=== PATIENT | female | born 1995 | race Caucasian/White ===

== ENCOUNTER → 2016-06-30 | Outpatient (CLI) | payer BC ==
[~2016-06-30] MED LIST: BIOTCAP2 PO; EPP3/2 IM; FLUD0.1T10 PO; JNL12021 PO; ONDA4TAB10 UT; POLY150C4 PO; SENN-61 PO
[2016-06-30 10:53] LABS: BASO % 0.8 %; BASO ABS # 0.05 K/uL (0-0.2); COMPLETE YES; EOS % 3.1 %; HEMATOCRIT 37.2 % (37-47); LYMPH % 31.1 %; MEAN CORPUSCULAR HEMOGLOBIN 27.8 pg (25-34); MEAN CORPUSCULAR HGB CONC 33.1 g/dl (32-36); MEAN PLATELET VOLUME 10.6 fL (7.4-10.4); MONO % 7.2 %; NEUT % 57.8 %; PLATELET COUNT 258 K/uL (130-400); RED BLOOD COUNT 4.43 M/uL (4.2-5.4); RETHE 31.2 PG (28.2-36.6); WHITE BLOOD COUNT 6.11 K/uL (4.8-10.8)
[2016-06-30 11:37] LABS: FERRITIN 32.4 ng/ml (8.0-388.0); TOTAL IRON BINDING CAPACITY 502 mcg/dl (250-450)
== END | disposition home or self-care (01) ==
LOC: C.LAB1850 10:00
PROVIDERS: ATTEND Hospitalist
DX: D50.9 Iron deficiency anemia, unspecified (principal)

== ENCOUNTER → 2016-11-13 | Outpatient (CLI) | payer BC ==
[2016-11-13 12:14] LABS: BASO ABS # 0.06 K/uL (0-0.2); EOS % 7.7 %; HEMATOCRIT 36.8 % (37-47); IG% 0.2 %; IMMATURE RETIC FRACTION 3.8 % (3.0-15.9); LYMPH % 30.9 %; LYMPH ABS # 1.77 K/uL (1.2-3.4); MEAN CELL VOLUME 84.4 fL (80-100); MEAN CORPUSCULAR HEMOGLOBIN 26.8 pg (25-34); MEAN CORPUSCULAR HGB CONC 31.8 g/dl (32-36); MEAN PLATELET VOLUME 10.8 fL (7.4-10.4); MONO % 6.6 %; NEUT % 53.6 %; PLATELET COUNT 257 K/uL (130-400); RED BLOOD COUNT 4.36 M/uL (4.2-5.4); RETHE 30.5 PG (28.2-36.6); WHITE BLOOD COUNT 5.72 K/uL (4.8-10.8)
[2016-11-13 12:38] LABS: ESTIMATED AVERAGE GLUCOSE 114 mg/dl; HA1C FLAG Normal (Normal)
[2016-11-13 12:40] LABS: C-REACTIVE PROTEIN < 0.29 mg/dl (0-0.29); FERRITIN 36.4 ng/ml (8.0-388.0); THYROID STIMULATING HORMONE 0.564 uIu/ml (0.300-4.500); TOTAL IRON BINDING CAPACITY 489 mcg/dl (250-450)
[2016-11-13 13:08] LABS: ECHINOCYTES 1+
[2016-11-13 14:11] LABS: COMPLETE YES
== END | disposition home or self-care (01) ==
LOC: C.LAB1850 10:33
PROVIDERS: ATTEND Physician Assistant
DX: D50.9 Iron deficiency anemia, unspecified (principal); R94.6 Abnormal results of thyroid function studies; R73.09 Other abnormal glucose

== ENCOUNTER → 2017-01-16 | Outpatient (CLI) | payer BC | END | disposition home or self-care (01) | LOC: C.PAPS 16:47 | PROVIDERS: ATTEND Obstetrics & Gynecology | DX: Z01.419 Encounter for gynecological examination (general) (routine) without abnormal findings (principal) ==

== ENCOUNTER 2017-05-09 12:37 | Emergency (ER) | payer BC, OTHER ==
[~2017-05-09] VITALS: Ht 167.6 cm; Wt 60.5 kg
[2017-05-09 12:46] VITALS: TEMP 38.3; Ht 167.6 cm; Wt 60.5 kg
[2017-05-09] MEDS ORDERED: SODIUM CHLORIDE 0.9% 1000ML 1,000 ML IV STA (13:07)
[2017-05-09] MEDS ORDERED: ACETAMINOPHEN 500 MG TAB PO STA (13:07)
[2017-05-09] MEDS ORDERED: CEFTRIAXONE SOD INJ 1 GM ADDVIAL IV STA (13:09)
--- NOTE | 2017-05-09 13:09 | EMERGENCY ROOM VISIT NOTE ---
History Report prepared by Dilcia: Dyana Lyles Under the Supervision of: Dr. Sarath Ruiz M.D. First contact with patient: 12:48 Chief Complaint: HEMATURIA Stated Complaint: HEMATURIA - REF BY DR WARD Nursing Triage Summary: pt reports started this AM with hematuria and dysuria, urinary freq. referred by PCP History of Present Illness The patient is a 21 year old female who presents to the Emergency Room with complaints of persistent hematuria since 4 am, about 7 hours MANAGER ANALYSIS. She notes abdominal pain and fever. She currently rates her pain a 4/10 in severity. She notes a 10 year history of intermittent hematuria, with no underlying cause. She states that she spoke with her PCP and was advised to come to the ED for evaluation. Her LNMP was last week. She denies retaining a tampon and . She denies any back pain. She has an iron insufficiency. She has a history of anemia and proteinuria. Source of History: patient Onset: 7 hours MANAGER ANALYSIS Position: other (global ) Symptom Intensity: 4/10 Quality: other (hematuria ) Timing: other (persistent) Associated Symptoms: + fevers, + abdominal pain Review of Systems See HPI for pertinent positives & negatives. A total of 10 systems reviewed and were otherwise negative. Past Medical & Surgical Medical Problems: (1) Anemia (2) Proteinuria Family History Cancer Diabetes mellitus Gallbladder disease Heart disease Hypertension Kidney disease Social History Smoking Status: Never Smoker Smokeless Tobacco Use: No Alcohol Use: none Drug Use: none Marital Status: single Housing Status: lives with family Occupation Status: employed Current/Historical Medications Scheduled Biotin (Biotin 5000), 5 MG PO HS Ethinyl Estradiol/Norethindr (Junel 05/16), 1 TAB PO HS Fludrocortisone Acetate (Florinef), 0.1 MG PO DAILY Polysaccharide Iron Complex (Ferrex 150), 150 MG PO BID Sulfa/Trimethoprim (Bactrim Ds 800MG/160MG), 1 TAB PO BID Allergies Coded Allergies: Benzyl Alcohol (Verified Allergy, Severe, ANAPHYLAXIS, 05/09/17) Iron (Verified Allergy, Severe, ANAPHYLAXIS, 05/09/17) Sucrose (Verified Allergy, Severe, ANAPHYLAXIS, 05/09/17) Physical Exam Vital Signs Date Time Temp Pulse Resp B/P (MAP) Pulse Ox O2 Delivery O2 Flow Rate FiO2 05/09/17 14:49 83 16 129/79 100 Room Air 05/09/17 12:46 38.3 104 20 140/85 99 Room Air Physical Exam GENERAL: Patient is a healthy-appearing well-nourished [] HEAD: Normocephalic atraumatic EYES: Ocular movements intact pupils equal and react to light OROPHARYNX mucous membranes are moist no exudates present no erythema or edema present NECK: Supple no nuchal rigidity CHEST: Good equal expansion LUNGS: Clear and equal to auscultation CARDIAC: Normal S1 and S2 ABDOMEN: Soft nontender no guarding BACK: No CVA tenderness EXTREMITIES: No pain upon palpation normal muscle strength in all groups no clubbing cyanosis or edema NEURO: Patient is following commands and answering questions appropriately. Alert and oriented x3 Cranial Nerves 2-12 grossly intact Medical Decision & Procedures ER Provider Diagnostic Interpretation: Radiology results as stated below per my review and radiologist interpretation: KUB CLINICAL HISTORY: Pt c/o hematuria pain pain COMPARISON STUDY: 10/25/2013 FINDINGS: Nonobstructive bowel pattern. Several calcifications overlying the right kidney. Surgical clips in the right upper quadrant presumably from prior cholecystectomy. IMPRESSION: 4 mm calcification mid right kidney. Nonobstructive bowel pattern. No acute process. The above report was generated using voice recognition software. It may contain grammatical, syntax or spelling errors. Electronically signed by: Lan Gonzalez M.D. 05/09/2017 1:45 PM Dictated Date/Time: 05/09/2017 1:44 PM (RENAL)RETROPERITON COMP HISTORY: Pain Pt c/o suprapubic pain COMPARISON: 11/28/2014. FINDINGS: Mild prominence of the renal pelves bilaterally. This is considered a chronic finding in this patient. No evidence for hydronephrosis. Maximum dimension of the right kidney is 12.1 cm. Maximum dimension left kidney is 11.2 cm. Bladder: No bladder wall thickening. The bilateral ureteral jets were identified. IMPRESSION: 1. Slight chronic prominence of the renal pelves bilaterally. 2. No acute process. 3. No evidence for hydronephrosis. The above report was generated using voice recognition software. It may contain grammatical, syntax or spelling errors. Electronically signed by: Lan Gonzalez M.D. 05/09/2017 2:20 PM Dictated Date/Time: 05/09/2017 2:18 PM Laboratory Results 05/09/17 13:18 Red Blood Count 4.29, Mean Corpuscular Volume 83.0, Mean Corpuscular Hemoglobin 27.5, Mean Corpuscular Hemoglobin Concent 33.1, Mean Platelet Volume 10.6, Neutrophils (%) (Auto) 69.0, Lymphocytes (%) (Auto) 22.4, Monocytes (%) (Auto) 6.4, Eosinophils (%) (Auto) 1.6, Basophils (%) (Auto) 0.5, Neutrophils # (Auto) 6.37, Lymphocytes # (Auto) 2.07, Monocytes # (Auto) 0.59, Eosinophils # (Auto) 0.15, Basophils # (Auto) 0.05 05/09/17 13:18 Test 05/09/17 13:00 05/09/17 13:18 Urine Color YELLOW Urine Appearance CLEAR (CLEAR) Urine pH 6.0 (4.5-7.5) Urine Specific [place] 1.013 (1.000-1.030) Urine Protein NEG (NEG) Urine Glucose (UA) NEG (NEG) Urine Ketones TRACE (NEG) Urine Occult Blood 3+ (NEG) Urine Nitrite NEG (NEG) Urine Bilirubin NEG (NEG) Urine Urobilinogen NEG (NEG) Urine Leukocyte Esterase MODERATE (NEG) Urine WBC (Auto) >30 /hpf (0-5) Urine RBC (Auto) 5-10 /hpf (0-4) Urine Hyaline Casts (Auto) 1-5 /lpf (0-5) Urine Epithelial Cells (Auto) 20-30 /lpf (0-5) Urine Bacteria (Auto) NEG (NEG) White Blood Count 9.24 K/uL (4.8-10.8) Red Blood Count 4.29 M/uL (4.2-5.4) Hemoglobin 11.8 g/dL (12.0-16.0) Hematocrit 35.6 % (37-47) Mean Corpuscular Volume 83.0 fL (80-100) Mean Corpuscular Hemoglobin 27.5 pg (25-34) Mean Corpuscular Hemoglobin Concent 33.1 g/dl (32-36) Platelet Count 234 K/uL (130-400) Mean Platelet Volume 10.6 fL (7.4-10.4) Neutrophils (%) (Auto) 69.0 % Lymphocytes (%) (Auto) 22.4 % Monocytes (%) (Auto) 6.4 % Eosinophils (%) (Auto) 1.6 % Basophils (%) (Auto) 0.5 % Neutrophils # (Auto) 6.37 K/uL (1.4-6.5) Lymphocytes # (Auto) 2.07 K/uL (1.2-3.4) Monocytes # (Auto) 0.59 K/uL (0.11-0.59) Eosinophils # (Auto) 0.15 K/uL (0-0.5) Basophils # (Auto) 0.05 K/uL (0-0.2) RDW Standard Deviation 41.0 fL (36.4-46.3) RDW Coefficient of Variation 13.6 % (11.5-14.5) Immature Granulocyte % (Auto) 0.1 % Immature Granulocyte # (Auto) 0.01 K/uL (0.00-0.02) Anion Gap 6.0 mmol/L (3-11) Est Creatinine Clear Calc Drug Dose 112.5 ml/min Estimated GFR () 134.2 Estimated GFR (Non- 115.8 BUN/Creatinine Ratio 13.0 (10-20) Calcium Level 8.7 mg/dl (8.5-10.1) Total Bilirubin 0.5 mg/dl (0.2-1) Direct Bilirubin 0.2 mg/dl (0-0.2) Aspartate Amino Transf (AST/SGOT) 11 U/L (15-37) Alanine Aminotransferase (ALT/SGPT) 19 U/L (12-78) Alkaline Phosphatase 49 U/L (45-117) Total Protein 7.5 gm/dl (6.4-8.2) Albumin 3.7 gm/dl (3.4-5.0) Lipase 110 U/L (73-393) Labs reviewed by ED physician. Medications Administered Medications (Trade) Dose Ordered Sig/Wilma Route Start Time Stop Time Status Last Admin Dose Admin Sodium Chloride 1,000 ml @ 999 mls/hr Q1H1M STAT IV 05/09/17 13:07 05/09/17 14:07 DC 05/09/17 13:31 999 MLS/HR Acetaminophen (Tylenol Tab) 1,000 mg NOW STAT PO 05/09/17 13:07 05/09/17 13:10 DC 05/09/17 13:30 1,000 MG Ceftriaxone Sodium (Rocephin Inj) 1 gm NOW STAT IV 05/09/17 13:09 05/09/17 13:10 DC 05/09/17 13:30 1 GM Trimethoprim/ Sulfamethoxazole (Septra Ds 800/ 160MG Tab) 1 tab NOW STAT PO 05/09/17 14:41 05/09/17 14:42 DC 05/09/17 14:48 1 TAB ED Course 1300: Past medical records reviewed. The patient was evaluated in room A2. A complete history and physical examination was performed. 1307: Ordered Tylenol 1,000 mg PO and Sodium Chloride 1,000 ml @ 999 mls/hr 1309: Ordered Rocephin 1 gm IV 1435: I reassessed the patient at this time. She is feeling better and resting comfortably. I discussed the results and treatment plan with the patient. I answered all pertaining questions that she had. She expressed understanding and verbalized agreement. The patient will be discharged home. Medical Decision Prior records/ancillary studies reviewed. Triage Nursing notes reviewed. The patient's history was concerning for abdominal pain. Differential diagnosis: Etiologies such as appendicitis, diverticulitis, PUD, biliary pathology, UTI, pancreatitis, obstruction, mesenteric ischemia, aortic pathology, infections, inflammatory bowel disease, renal colic, as well as others were entertained. This is a 21-year-old female who presents emergency department complaining of hematuria. The back to the patient's chart she has grown out staph saprophyticus in the past when she has had symptoms like this previously. For this reason the patient was given Rocephin and started on Bactrim. In addition the patient was given normal saline bolus. Her urine was sent for culture. KUB and ultrasound are concerning for a undescended stone. I stressed the need for follow-up with urology. Patient and mother were in agreement with treatment plan. Medication Reconcilliation Current Medication List: was personally reviewed by me Blood Pressure Screening Patient's blood pressure: Elevated blood pressure Blood pressure disposition: Referred to PCP Impression Primary Impression: Hematuria Scribe Attestation The scribe's documentation has been prepared under my direction and personally reviewed by me in its entirety. I confirm that the note above accurately reflects all work, treatment, procedures, and medical decision making performed by me. Departure Information Dispostion Home / Self-Care Prescriptions Sulfa/Trimethoprim (Bactrim Ds 800MG/160MG) Tab 1 TAB PO BID for 7 Days, #14 TAB Prov: Sarath Ruiz MD 05/09/17 Referrals Vinh Jc M.D. (PCP) Forms HOME CARE DOCUMENTATION FORM, IMPORTANT VISIT INFORMATION, WORK / SCHOOL INSTRUCTIONS Patient Instructions ED Stone Kidney Undescended No Sx, ED UTI Cystitis Female, Kidney Stones Prevent , Kidney Stones Risk, My [facility] Additional Instructions Take 1000 mg Tylenol every 6 hours Return if fevers are out of control Culture results are usually available in approx 48 hours You have been examined and treated today on an emergency basis only. This is not a substitute for, or an effort to provide, complete comprehensive medical care. It is impossible to recognize and treat all injuries or illnesses in a single emergency department visit. It is therefore important that you follow up closely with Dr Wright. Call as soon as possible for an appointment. Thank you for your time and consideration. I look forward to speaking with you again soon. Please don't hesitate to call us if you have any questions. Problem Qualifiers Primary Impression: Hematuria Hematuria type: unspecified type Qualified Codes: R31.9 - Hematuria, unspecified
[2017-05-09 13:37] LABS: BASO % 0.5 %; BASO ABS # 0.05 K/uL (0-0.2); EOS % 1.6 %; EOS ABS # 0.15 K/uL (0-0.5); HEMATOCRIT 35.6 % (37-47); HEMOGLOBIN 11.8 g/dL (12.0-16.0); IG# 0.01 K/uL (0.00-0.02); LYMPH % 22.4 %; LYMPH ABS # 2.07 K/uL (1.2-3.4); MEAN CORPUSCULAR HEMOGLOBIN 27.5 pg (25-34); MEAN CORPUSCULAR HGB CONC 33.1 g/dl (32-36); MEAN PLATELET VOLUME 10.6 fL (7.4-10.4); MONO % 6.4 %; MONO ABS # 0.59 K/uL (0.11-0.59); NEUT ABS # 6.37 K/uL (1.4-6.5); PLATELET COUNT 234 K/uL (130-400); RED CELL DISTRIBUTION WIDTH CV 13.6 % (11.5-14.5); WHITE BLOOD COUNT 9.24 K/uL (4.8-10.8)
[2017-05-09 13:46] LABS: ALBUMIN 3.7 gm/dl (3.4-5.0); CALCIUM 8.7 mg/dl (8.5-10.1); CREATININE 0.74 mg/dl (0.60-1.20); POTASSIUM 3.9 mmol/L (3.5-5.1)
--- NOTE | 2017-05-09 13:47 | DIAGNOSTIC IMAGING REPORT ---
KUB CLINICAL HISTORY: Pt c/o hematuria pain pain COMPARISON STUDY: 10/25/2013 FINDINGS: Nonobstructive bowel pattern. Several calcifications overlying the right kidney. Surgical clips in the right upper quadrant presumably from prior cholecystectomy. IMPRESSION: 4 mm calcification mid right kidney. Nonobstructive bowel pattern. No acute process. The above report was generated using voice recognition software. It may contain grammatical, syntax or spelling errors. Electronically signed by: Lan Gonzalez M.D. 05/09/2017 1:45 PM Dictated Date/Time: 05/09/2017 1:44 PM
[2017-05-09 13:49] LABS: TOTAL PROTEIN 7.5 gm/dl (6.4-8.2)
--- NOTE | 2017-05-09 14:21 | DIAGNOSTIC IMAGING REPORT ---
(RENAL)RETROPERITON COMP HISTORY: Pain Pt c/o suprapubic pain COMPARISON: 11/28/2014. FINDINGS: Mild prominence of the renal pelves bilaterally. This is considered a chronic finding in this patient. No evidence for hydronephrosis. Maximum dimension of the right kidney is 12.1 cm. Maximum dimension left kidney is 11.2 cm. Bladder: No bladder wall thickening. The bilateral ureteral jets were identified. IMPRESSION: 1. Slight chronic prominence of the renal pelves bilaterally. 2. No acute process. 3. No evidence for hydronephrosis. The above report was generated using voice recognition software. It may contain grammatical, syntax or spelling errors. Electronically signed by: Lan Gonzalez M.D. 05/09/2017 2:20 PM Dictated Date/Time: 05/09/2017 2:18 PM
[2017-05-09] MEDS ORDERED: SULFAMETHOXAZOLE/TRIMETHOPRIM DS 800/160MG TAB PO STA (14:41)
[2017-05-09] MEDS ORDERED: SULF800T23 PO (14:45)
[2017-05-09 14:49] VITALS: BP 129/79; PULSE 83; O2SAT 100
== END 2017-05-09 15:06 | disposition home or self-care (01) ==
LOC: C.EDB 12:38 → C.EDA 15:06
DX: R31.9 Hematuria, unspecified (principal); N20.0 Calculus of kidney; E61.1 Iron deficiency; D64.9 Anemia, unspecified; R80.9 Proteinuria, unspecified; Z83.3 Family history of diabetes mellitus; Z82.49 Family history of ischemic heart disease and other diseases of the circulatory system

== ENCOUNTER → 2017-07-02 | Outpatient (CLI) | payer OTHER ==
[~2017-07-02] MED LIST changes: +BIOT1CAP8 PO; -BIOTCAP2 PO; -EPP3/2 IM; +FERR1TAB23 PO; -FLUD0.1T10 PO; +HYDR-5688 PO; -ONDA4TAB10 UT; -POLY150C4 PO; -SENN-61 PO
--- NOTE | 2017-07-02 16:10 | DIAGNOSTIC IMAGING REPORT ---
KUB HISTORY: Follow-up study in a patient with history of kidney stones N20.0 Kidney stone COMPARISON: KUB 05/09/2017 FINDINGS: The bowel gas pattern is non-obstructive. There is no organomegaly. The previously described 4 mm calculus projecting over the abdominal right upper quadrant is not identified on today's study. No definite renal or ureteral calculi are seen. Surgical clips of the right upper abdomen suggest prior cholecystectomy. Surgical clip of the right hemipelvis is noted in addition to round calcifications of the left hemipelvis suggesting phleboliths. No pneumoperitoneum or pneumatosis. No fracture. IMPRESSION: No renal or ureteral stones. The previously noted 4 mm calculus projecting over the right kidney is not identified. Electronically signed by: Teo Hollis M.D. 07/02/2017 4:09 PM Dictated Date/Time: 07/02/2017 4:07 PM
== END | disposition home or self-care (01) ==
LOC: C.LAB1850 15:43
PROVIDERS: ATTEND Urology
DX: N20.0 Calculus of kidney (principal)

== ENCOUNTER → 2017-07-03 | Day surgery (SDC) | payer OTHER ==
[2017-06-24 09:19] VITALS: Ht 167.6 cm; Wt 59.1 kg
[~2017-07-03] VITALS: Ht 167.6 cm; Wt 59.1 kg
[~2017-07-03] MED LIST changes: +ACETAMINOPHEN 325 MG TAB PO PRN; +ATROPINE SULFATE 0.1 MG/ML 5ML SYR IV PRN; +CIPROFLOXACIN 400MG / D5W IV SCH; +DEXAMETHASONE SOD INJ 4 MG/ML VIAL ONE; +EpHEDrine SULFATE INJ 50 MG/ML AMP IV PRN; +FENTANYL CITRATE INJ 50 MCG/1 ML 2 ML VIAL IV PRN; +FENTANYL CITRATE INJ 50 MCG/1 ML 2 ML VIAL ONE; +HYDROCODONE/ACETAMIN 5/325MG TAB PO PRN; +LACTATED RINGER'S 1000ML 1,000 ML IV SCH; +LIDOCAINE HCL 2% 2 ML VIAL (20MG/ML) ONE; +MIDAZOLAM HCL 1 MG/ML 2ML VIAL ONE; +ONDANSETRON INJ 2 MG/ML 2 ML VIAL IV PRN; +ONDANSETRON INJ 2 MG/ML 2 ML VIAL ONE; +PROMETHAZINE HCL INJ 6.25 MG in SODIUM CHLORIDE 0.9% 50ML 50 ML IV PRN; +PROPOFOL IV EMULSION 10 MG/ML 20 ML VIAL IV ONE; +SODIUM CHLORIDE 0.9% 1000ML 1,000 ML IV SCH
--- NOTE | 2017-07-03 06:57 | History & Physical Bridge Note ---
H&P Re-Evaluation Bridge Note: I have examined the patient, reviewed the History & Physical and in the interval since the performance of the History & Physical I have noted the following changes of clinical significance: No changes noted
--- NOTE | 2017-07-03 07:24 | Discharge Instructions-SurgCtr ---
Discharge Instructions Date of Service Jul 03, 2017. Visit Reason for Visit: Stones Discharge Discharge Diagnosis / Problem: stones Discharge Goals Goal(s): Decrease discomfort, Improve function, Increase independence, Improve disease control Activity Recommendations Activity Limitations: resume your previous activity Lifting Limitations: none Exercise/Sports Limitations: none May Resume Sexual Activity: when tolerated Shower/Bathe: no limitations Driving or Machine Use: resume 1 day after discharge Anesthesia . Post Anesthesia Instructions: If you have had General Anesthesia or IV Sedation: * Do not drive today. * Resume driving when surgeon permits. * Do not make important decisions or sign legal documents today. * Call surgeon for: 1. Temperature elevations greater than 101 degrees F. 2. Uncontrollable pain. 3. Excessive bleeding. 4. Persistent nausea and vomiting. 5. Medication intolerance (nausea, vomiting or rash). * For nausea and vomiting use only clear liquids such as: tea, soda, bouillon until nausea subsides, then gradually increase diet as tolerated. * If you have any concerns or questions, call your surgeon's office. If physician is unavailable and it is an emergency, call 911 or go to the nearest emergency room. . Instructions / Follow-Up Instructions / Follow-Up Please keep your previously scheduled follow up appointment Diet Recommendations Home Diet: no limitations, resume previous diet Pending Studies Studies pending at discharge: no Medical Emergencies . Who to Call and When: Medical Emergencies: If at any time you feel your situation is an emergency, please call 911 immediately. . Non-Emergent Contact Non-Emergency issues call your: Urologist Call Non-Emergent contact if: you have a fever, temperature is above 101.5, your pain is not controlled, your pain is worsening . . "Provider Documentation" section prepared by Te Gage. . [place] Drug Monitoring Program Search Results: patient reviewed within database, no issues identified
--- NOTE | 2017-07-03 07:28 | [facility] Operative Report ---
Operative Report Operative Date Jul 03, 2017. Pre-Operative Diagnosis nephrolithiasis Post-Operative Diagnosis nephrolithiasis Procedure(s) Performed ESWL (RIGHT) Surgeon Suzie Estimated Blood Loss 0cc Findings small right renal stone (4mm) Drains None Anesthesia Type General Complication(s) none Disposition yes Indications Hematuria; right flank pain Description of Procedure The patient was identified in the preoperative holding area, appropriate informed consent was reviewed and completed and the patient was transported to the operating suite. Upon arrival appropriate preoperative antibiotics were administered and general anesthesia induced. The patient was placed in supine position and the stone was localized under fluoroscopy. A total of 2500 shocks were delivered to the stone. There appeared to be good fragmentation of the stone. Details of this procedure can be found on the [place] information sheet. At the conclusion of the case the patient was extubated and taken to the PACU in stable condition. There were no complications. I attest to the content of the Intraoperative Record and any orders documented therein. Any exceptions are noted below.
[2017-07-03 08:33] VITALS: TEMP 36.5
[2017-07-03 08:50] VITALS: BP 109/72; PULSE 64; O2SAT 100
--- NOTE | 2017-07-03 09:07 | Anesthesia Progress Nt - [facility] ---
Anesthesia Post Op Note Date & Time Jul 03, 2017 at 09:06 Vital Signs Pain Intensity: 0 Vital Signs Past 12 Hours Date Time Temp Pulse Resp B/P (MAP) Pulse Ox O2 Delivery O2 Flow Rate FiO2 07/03/17 08:50 64 16 109/72 (84) 100 Room Air 07/03/17 08:33 36.5 74 16 116/74 (88) 100 Room Air 07/03/17 08:20 36.8 64 20 112/71 100 Room Air 07/03/17 08:16 68 16 100 07/03/17 08:16 67 16 07/03/17 08:15 109/69 07/03/17 08:11 66 18 07/03/17 08:11 63 18 99 07/03/17 08:10 110/70 07/03/17 08:06 69 13 100 07/03/17 08:06 71 13 07/03/17 08:05 109/73 07/03/17 08:01 77 15 07/03/17 08:01 80 15 100 07/03/17 08:00 98/67 07/03/17 07:56 95 22 100 07/03/17 07:56 93 22 07/03/17 07:55 104/72 07/03/17 07:54 108/70 07/03/17 07:54 36.4 95 16 108/70 100 Mask 5 07/03/17 06:16 36.8 76 16 117/79 (92) 99 Room Air Notes Mental Status: alert / awake / arousable, participated in evaluation Pt Amnestic to Procedure: Yes Nausea / Vomiting: adequately controlled Pain: adequately controlled Airway Patency, RR, SpO2: stable & adequate BP & HR: stable & adequate Hydration State: stable & adequate Anesthetic Complications: no major complications apparent
== END | disposition home or self-care (01) ==
LOC: X.SURG 06:01
PROVIDERS: ATTEND Urology
DX: N20.0 Calculus of kidney (principal); Z90.49 Acquired absence of other specified parts of digestive tract; Z98.890 Other specified postprocedural states

== ENCOUNTER → 2017-07-21 | Outpatient (CLI) | payer OTHER ==
[~2017-07-21] MED LIST changes: -ACETAMINOPHEN 325 MG TAB PO PRN; -ATROPINE SULFATE 0.1 MG/ML 5ML SYR IV PRN; -CIPROFLOXACIN 400MG / D5W IV SCH; -DEXAMETHASONE SOD INJ 4 MG/ML VIAL ONE; -EpHEDrine SULFATE INJ 50 MG/ML AMP IV PRN; -FENTANYL CITRATE INJ 50 MCG/1 ML 2 ML VIAL IV PRN; -FENTANYL CITRATE INJ 50 MCG/1 ML 2 ML VIAL ONE; -HYDROCODONE/ACETAMIN 5/325MG TAB PO PRN; -LACTATED RINGER'S 1000ML 1,000 ML IV SCH; -LIDOCAINE HCL 2% 2 ML VIAL (20MG/ML) ONE; -MIDAZOLAM HCL 1 MG/ML 2ML VIAL ONE; -ONDANSETRON INJ 2 MG/ML 2 ML VIAL IV PRN; -ONDANSETRON INJ 2 MG/ML 2 ML VIAL ONE; -PROMETHAZINE HCL INJ 6.25 MG in SODIUM CHLORIDE 0.9% 50ML 50 ML IV PRN; -PROPOFOL IV EMULSION 10 MG/ML 20 ML VIAL IV ONE; -SODIUM CHLORIDE 0.9% 1000ML 1,000 ML IV SCH
--- NOTE | 2017-07-21 15:00 | DIAGNOSTIC IMAGING REPORT ---
KUB CLINICAL HISTORY: 21 years-old Female presenting with KIDNEY STONE. TECHNIQUE: Single supine view of the abdomen was obtained. COMPARISON: 07/02/2017. FINDINGS: Cholecystectomy clips noted. Mild stool burden throughout the colon. Nonobstructive bowel gas pattern. No gross pneumoperitoneum. Allowing for bowel gas and stool, no calcifications to suggest nephrolithiasis. No calcifications along the courses of the ureters. Surgical clip projects over the pelvis. Pelvic phleboliths unchanged in distribution. Osseous structures normal. IMPRESSION: 1. No renal or ureteral calculi are radiographically apparent. Electronically signed by: Jose Molnia M.D. 07/21/2017 2:58 PM Dictated Date/Time: 07/21/2017 2:57 PM
== END | disposition home or self-care (01) ==
LOC: C.RAD1850 14:39
PROVIDERS: ATTEND Urology
DX: N20.0 Calculus of kidney (principal)

== ENCOUNTER → 2017-09-07 | Outpatient (CLI) | payer OTHER ==
[2017-09-07 14:42] LABS: BASO % 0.4 %; BASO ABS # 0.03 K/uL (0-0.2); EOS % 3.1 %; EOS ABS # 0.21 K/uL (0-0.5); HEMATOCRIT 34.3 % (37-47); HEMOGLOBIN 11.4 g/dL (12.0-16.0); IG# 0.01 K/uL (0.00-0.02); LYMPH % 33.5 %; LYMPH ABS # 2.29 K/uL (1.2-3.4); MEAN CELL VOLUME 83.3 fL (80-100); MEAN CORPUSCULAR HEMOGLOBIN 27.7 pg (25-34); MEAN CORPUSCULAR HGB CONC 33.2 g/dl (32-36); MEAN PLATELET VOLUME 10.5 fL (7.4-10.4); MONO % 6.1 %; MONO ABS # 0.42 K/uL (0.11-0.59); NEUT % 56.8 %; NEUT ABS # 3.87 K/uL (1.4-6.5); PLATELET COUNT 246 K/uL (130-400); RED CELL DISTRIBUTION WIDTH CV 13.6 % (11.5-14.5); RED CELL DISTRIBUTION WIDTH SD 40.9 fL (36.4-46.3); WHITE BLOOD COUNT 6.83 K/uL (4.8-10.8)
[2017-09-07 15:01] LABS: BLOOD UREA NITROGEN 16 mg/dl (7-18); CALCIUM 8.6 mg/dl (8.5-10.1); CARBON DIOXIDE 24 mmol/L (21-32); CREATININE 0.79 mg/dl (0.60-1.20); GLUCOSE 94 mg/dl (70-99); POTASSIUM 3.6 mmol/L (3.5-5.1); SODIUM 138 mmol/L (136-145)
== END | disposition home or self-care (01) ==
LOC: C.LABCCP 13:41
PROVIDERS: ATTEND Hospitalist
DX: D64.9 Anemia, unspecified (principal); Z00.00 Encounter for general adult medical examination without abnormal findings; R55 Syncope and collapse; D69.0 Allergic purpura; R31.0 Gross hematuria

== ENCOUNTER → 2017-09-09 | Outpatient (CLI) | payer OTHER ==
[2017-09-09 13:03] LABS: RETIC COUNT % 0.6 % (0.5-2.0)
== END | disposition home or self-care (01) ==
LOC: C.LABCP 10:32
PROVIDERS: ATTEND Hospitalist
DX: D64.9 Anemia, unspecified (principal)

== ENCOUNTER → 2017-11-12 | Outpatient (CLI) | payer OTHER | END | disposition home or self-care (01) | LOC: C.LAB1850 14:49 | PROVIDERS: ATTEND Internal Medicine Cardiovascular Disease | DX: R00.2 Palpitations (principal) ==

== ENCOUNTER 2021-07-06 00:32 | Inpatient (IN) ==
[2021-07-06] MEDS ORDERED: OXYTOCIN 30 UNITS/500 ML BAG IV PRN ×3 (01:18→16:04)
[2021-07-06 01:52] LABS: Hematocrit (blood only) 34.6 % (37-47); Hemoglobin 11.7 g/dL (12.0-16.0); Mean Corpuscular Volume 85.9 fL (80-100); Mean Platelet Volume 10.4 fL (7.4-10.4); Platelet Count 235 K/uL (130-400); RDW Coefficient of Variation 13.8 % (11.5-14.5); RDW Standard Deviation 43.3 fL (36.4-46.3); Red Blood Count 4.03 M/uL (4.2-5.4); White Blood Count 12.37 K/uL (4.8-10.8)
[2021-07-06 02:03] LABS: Mean Corpuscular Hgb Conc 33.8 g/dL (32-36)
[2021-07-06] MEDS: LACTATED RINGER'S 1,000 ML IV PRN ×2 (05:31→09:47)
[2021-07-06] MEDS ORDERED: ePHEDrine sulfate 50 MG/ML AMP ONE (05:33)
[2021-07-06] MEDS ORDERED: fentaNYL citrate 100 MCG/2 ML VIAL ONE (05:34)
[2021-07-06] MEDS ORDERED: BUPIVACAINE 0.25% 30 ML VIAL ONE (05:34)
[2021-07-06] MEDS ORDERED: SODIUM CHLORIDE 0.9% INJ 10 ML VIAL ONE (05:34)
[2021-07-06] MEDS ORDERED: fentaNYL 2MCG/ML ROPIVACAINE 1.25MG/ML 100 ML BAG EPI ONE (05:35)
[2021-07-06] MEDS ORDERED: NALBUPHINE HCL INJ 10 MG/ML AMP IV PRN (06:19)
[2021-07-06] MEDS ORDERED: NALOXONE HCL 1 MG in SODIUM CHLORIDE 0.9% 1000ML 1,000 ML IV PRN (06:19)
[2021-07-06] MEDS ORDERED: diphenhydrAMINE 50 MG/ML VIAL IV PRN (06:19)
[2021-07-06] MEDS ORDERED: NALOXONE HCL 0.4 MG/1 ML VIAL/CARP IV PRN (06:19)
[2021-07-06] MEDS ORDERED: ONDANSETRON INJ 2 MG/ML 2 ML VIAL IV PRN (06:19)
[2021-07-06] MEDS ORDERED: ePHEDrine sulfate 50 MG/ML AMP IV PRN (06:19)
[2021-07-06] MEDS ORDERED: fentaNYL 2MCG/ML ROPIVACAINE 1.25MG/ML 100 ML BAG EPI PRN (06:19)
--- NOTE | 2021-07-06 06:24 | Anesthesiology Consultation ---
Date of Service July 06, 2021 Assessment & Plan (1) Encounter for pre-operative examination: Chart Review Chart Review: Patient NOT seen in Pre Admission Testing and Acceptable Risk for Labor Epidural Consults Requested none ASA ASA2 Proposed Anesthesia Anesthesia Type: Labor Epidural and CSE Risk / Benefits Reviewed With: PT / POA / Parent / Guardian, Accepts Plan and Informed Consent Obtained History Height/Weight Height: 5 ft 6 in Weight: 79.379 kg Allergies Allergy/AdvReac Type Severity Reaction Status Date / Time iron Allergy Severe ANAPHYLAXIS Verified 07/06/21 00:49 Medications Home Medications Medication Instructions Recorded Confirmed Last Taken ferrous sulfate 325 mg (65 mg 325 mg PO BID #60 tab 11/03/18 07/06/21 07/05/21 20:00 iron) tablet prenat.vits,son,[id number] 1 tab PO DAILY 07/06/21 07/06/21 07/05/21 20:00 Active Medications Generic Name Dose Route Start Last Admin Trade Name Freq PRN Reason Stop Dose Admin Lactated Ringer's 1,000 mls @ 125 mls/hr 07/06/21 01:18 07/06/21 06:03 Lr IV 07/08/21 01:17 125 mls/hr .Q8H PRN Infusion L&D Protocol Protocol Oxytocin 30 units in 500 mls @ 1 mls/hr 07/06/21 05:22 07/06/21 06:19 Pitocin IV 07/08/21 05:21 0.18 units/hr .Q24H PRN 3 mls/hr Labor Induction/Augmentation Titration Protocol 0.06 UNITS/HR NPO Date Last Intake of Fluids: 07/06/21 Time Last Intake of Fluids: 05:00 Date Last Intake of Solids: 07/05/21 Time Last Intake of Solids: 18:00 Past Medical History Medical History Anemia Branchial cleft cyst Contraception management Elevated hemoglobin A1c Encounter for annual routine gynecological examination Hematuria, gross History of Henoch-Schonlein purpura Hx of oral aphthous ulcers Hyperglycemia Mitral regurgitation Mitral regurgitation of mother during Nephrolithiasis, uric acid Neurocardiogenic syncope Varicella vaccination Exercise / Class Metabolic Activity II 4-5 Yardwork/Stairs/Walk up hill Past Family History Family History Mother Asthma Hypertension Breast cancer Mitral regurgitation Nephrolithiasis Ovarian cyst Diabetes Heart disease Aunt Asthma Lung cancer Grandfather Heart disease Hypertension Grandmother Hypertension Past Surgical History Surgical History History of surgery urachal cyst removal, age 13 brachial cleft cyst removal age 1 Hx of esophagogastroduodenoscopy S/P arthroscopy of knee S/P cholecystectomy S/P colonoscopy Past Anesthesia History No Hx of Anesthesia Complications and No Family Hx of Anesthesia Complications History of PONV No Hx of PONV and No Hx of Motion Sickness Social History Smoking Status: Never smoker Hx Alcohol Use: No Hx Substance Use: No substance use type: does not use Review of Systems no chest pain or sob Physical Exam Vital Signs Last Vital Signs Temp 36.8 C 07/06/21 05:26 Pulse 88 07/06/21 06:18 Resp 18 07/06/21 05:26 BP 129/73 07/06/21 05:25 Pulse Ox 98 07/06/21 06:18 ENMT Mouth: no TMJ abnormality Thyromental Distance: > or= 3.5 Finger Breadths Mallampati Class: II Neck normal visual inspection Respiratory normal respiratory effort Auscultation: lungs clear to auscultation bilaterally Cardiovascular Rate/Rhythm: regular rate and regular rhythm Musculoskeletal Spine: normal cervical ROM Neurologic moves all extremities Psychiatric Orientation: alert and oriented x 3 Testing Laboratory Results 07/06/21 01:38
--- NOTE | 2021-07-06 07:28 | Labor Progress Brief Note ---
Date of Service July 06, 2021 Subjective Comfortable with epidural Assessment & Plan (1) SROM (spontaneous rupture of membranes): Plan: Continue augmentation of labor with pitocin, continue epidural Admission and Anticipated Discharge Date Admission Date: July 06, 2021 Physical Exam Genitourinary: 80/-1 FHT Cat 1 [place] Q3 Forebag ruptured for clear fluid Results & Data ([facility]) Vital Signs (Past 12 Hours) Vital Signs Temp Pulse Resp BP Pulse Ox 07/06/21 07:24 87 103/57 L 07/06/21 07:23 80 100 07/06/21 07:21 79 102/58 L 07/06/21 07:18 87 114/58 L 100 07/06/21 07:16 82 117/58 L 07/06/21 07:13 88 100 07/06/21 07:09 82 129/74 07/06/21 07:08 86 93 07/06/21 07:06 86 116/67 07/06/21 07:03 85 110/58 L 100 07/06/21 07:00 81 114/63 07/06/21 06:58 85 100 07/06/21 06:57 82 106/60 07/06/21 06:56 18 07/06/21 06:54 83 117/63 07/06/21 06:53 87 100 07/06/21 06:51 89 18 118/69 07/06/21 06:48 94 H 123/71 100 07/06/21 06:45 96 H 18 122/69 07/06/21 06:43 85 100 07/06/21 06:42 85 18 124/68 07/06/21 06:39 93 H 123/80 07/06/21 06:38 93 H 100 07/06/21 06:36 89 124/77 07/06/21 06:33 90 100 07/06/21 06:28 102 H 100 07/06/21 06:23 80 100 07/06/21 06:18 88 98 07/06/21 06:13 95 H 100 07/06/21 06:08 82 99 07/06/21 06:03 87 100 07/06/21 05:58 92 H 99 07/06/21 05:53 81 98 07/06/21 05:48 92 H 100 07/06/21 05:43 89 99 07/06/21 05:38 85 100 07/06/21 05:26 98.2 F 18 07/06/21 05:25 85 129/73 07/06/21 04:29 98.2 F 83 18 124/73 07/06/21 02:53 98.1 F 18 07/06/21 00:50 98.4 F 16 07/06/21 00:47 86 127/70 Coding Level of Care Code None Diagnoses SROM (spontaneous rupture of membranes)
[2021-07-06] MEDS ORDERED: oxyCODONE/ACETAMINOPHEN 5mg/325mg TAB PO PRN (16:04)
[2021-07-06] MEDS ORDERED: DIPHTHERIA/TETANUS/PERTUSSIS 0.5 ML SYR/VIAL IM ONE (16:04)
[2021-07-06] MEDS ORDERED: bisacodyL 10 MG SUPP PR PRN (16:04)
[2021-07-06] MEDS ORDERED: BENZOCAINE 20% AER SPR 82.5 GM CAN EXT PRN (16:04)
[2021-07-06] MEDS ORDERED: HYDROCORTISONE ACETATE 25 MG SUPP PR PRN (16:04)
[2021-07-06] MEDS ORDERED: ACETAMINOPHEN 325 MG TAB PO PRN (16:04)
--- NOTE | 2021-07-06 16:10 | Delivery Summary ---
Vaginal Delivery Summary Date of Service July 06, 2021 Vaginal Delivery Summary and 2nd Degree LAC Vaginal Delivery Summary: Pre-delivery diagnoses: 25yo @ 39 6/7, spontaneous labor Post-delivery diagnoses: same Procedure: spontaneous vaginal delivery Surgeon: Nicky Yepez DO Complications: none Findings: Viable female . Apgars: 8/9 . Weight pending, please see nursery records Estimated blood loss: 300ml Description of delivery: The patient progressed to complete with epidural anesthesia. She then began to push. She spontaneously vaginally delivered a viable from the cephalic presentation. The head delivered in CURT position. The anterior shoulder delivered, followed by the posterior shoulder, followed by the body. The baby was placed on mother's abdomen and a spontaneous cry was heard. Delayed cord clamping was employed, and the cord was doubly clamped and cut. Cord blood was obtained. The placenta was delivered spontaneously intact with a 3-vessel cord. The uterus and vagina were swept of clots and debris. IV pitocin was given. The uterus became firm. The cervix, vagina, and perineum were inspected and a first degree perineal laceration was noted, repaired with 3-0 Vicryl in standard fashion. Excellent hemostasis was observed. The mother and baby are recovering in stable and good condition in the room. Sponge, needle and instrument counts were correct x 2. Nicky Yepez DO [facility] Vaginal Delivery Charge Vaginal Delivery Codes: 37729 global code for the antepartum, delivery, and post- Delivery Type Details: and 2nd Degree LAC
[2021-07-06] MEDS ORDERED: DOCUSATE SODIUM 100 MG CAP PO ONE (19:55)
[2021-07-06] MEDS: DOCUSATE SODIUM 100 MG CAP PO SCH (21:11)
[2021-07-07] MEDS: IBUPROFEN 600 MG TAB PO PRN ×4 (04:06→23:33)
[2021-07-07 06:42] LABS: Hematocrit (blood only) 33.1 % (37-47); Hemoglobin 11.3 g/dL (12.0-16.0)
[2021-07-07] MEDS: PRENATAL VITAMIN 1 TAB PO SCH (07:21)
[2021-07-07] MEDS: DOCUSATE SODIUM 100 MG CAP PO SCH ×2 (07:22→20:02)
--- NOTE | 2021-07-07 08:29 | Obstetrical Progress Note ---
Date of Service July 07, 2021 Assessment & Plan (1) Encounter for supervision of normal intrauterine in primigravida, antepartum: PPD#1 doing well, no concerns. Plans for DC home tomorrow. Subjective Ambulation: ambulating normally Voiding: no voiding problems Diet Tolerance:: regular diet Lochia:: Moderate Review of Systems All systems reviewed & are unremarkable except as noted in HPI & below Physical Exam Constitutional WD/WN, vitals as above no acute distress Respiratory normal respiratory effort Cardiovascular Rate/Rhythm: regular rate and regular rhythm Gastrointestinal (Abdomen) Inspection/Auscultation: abdomen normal to inspection; abdomen not distended Percussion/Palpation: abdomen soft Genitourinary OB Exam Abdomen: + fundal height Fundus: + firm; not tender Results & Data ([facility]) Vital Signs (Past 12 Hours) Vital Signs Temp Pulse Resp BP Pulse Ox 07/07/21 03:50 36.7 C 82 18 109/76 98 07/06/21 23:30 36.3 C L 80 16 118/83 07/06/21 19:50 37.1 C 79 18 123/79 97
--- NOTE | 2021-07-07 08:58 | Anesthesia Procedure Note ---
Date of Service July 07, 2021 Anesthesia Post Epidural Note Vital Signs Vital Signs: Temp Pulse Resp BP Pulse Ox 36.7 C 80 18 109/73 98 07/07/21 07:25 07/07/21 07:25 07/07/21 07:25 07/07/21 07:25 07/07/21 03:50 Notes Mental Status: alert / awake / arousable and participated in evaluation Nausea / Vomiting: adequately controlled Pain: adequately controlled Airway Patency, RR, SpO2: stable & adequate BP & HR: stable & adequate Hydration State: stable & adequate Neuraxial Anesthesia: was administered and sensory block is resolving Anesthetic Complications: no major complications apparent and Pt Satisfied with anesthetic care Epidural: Removed without complications and With tip intact
[2021-07-07] MEDS ORDERED: bisacodyL 5 MG TABEC PO SCH (20:00)
[2021-07-08] MEDS: IBUPROFEN 600 MG TAB PO PRN (05:49)
--- NOTE | 2021-07-08 07:32 | Obstetrical Progress Note ---
Date of Service July 08, 2021 Assessment & Plan (1) Encounter for supervision of normal intrauterine in primigravida, antepartum: PPD#2 doing well. DC home. Instructions reviewed. Subjective Ambulation: ambulating normally Voiding: no voiding problems Diet Tolerance:: regular diet Lochia:: Moderate Review of Systems All systems reviewed & are unremarkable except as noted in HPI & below Physical Exam Constitutional WD/WN, vitals as above no acute distress Respiratory normal respiratory effort Cardiovascular Rate/Rhythm: regular rate and regular rhythm Gastrointestinal (Abdomen) Inspection/Auscultation: abdomen normal to inspection; abdomen not distended Percussion/Palpation: abdomen soft Genitourinary OB Exam Abdomen: + fundal height Fundus: + firm; not tender Results & Data ([facility]) Vital Signs (Past 12 Hours) Vital Signs Temp Pulse Resp BP Pulse Ox 07/07/21 23:02 36.5 C 78 16 114/77 97
[2021-07-08] MEDS: PRENATAL VITAMIN 1 TAB PO SCH (07:36)
[2021-07-08] MEDS: DOCUSATE SODIUM 100 MG CAP PO SCH (07:36)
== END 2021-07-08 10:40 | disposition home or self-care (01) | DRG 807 ==
LOC: OPB 00:32 → 4S1 00:36 → 4S2 18:24
DX: Z37.0 Single live birth; O70.0 First degree perineal laceration during delivery; Z3A.39 39 weeks gestation of pregnancy

== ENCOUNTER 2023-03-05 11:59 | Inpatient (IN) ==
[2023-03-05] MEDS ORDERED: OXYTOCIN 30 UNITS/500 ML BAG IV PRN ×3 (12:30→22:18)
[2023-03-05] MEDS ORDERED: LIDOCAINE 1% LOCAL 20 ML VIAL INFIL PRN (12:30)
[2023-03-05 12:51] LABS: Hematocrit (blood only) 34.6 % (37.0-47.0); Hemoglobin 11.6 g/dl (12.0-16.0); Mean Corpuscular Hemoglobin 28.4 pg (25.0-34.0); Mean Corpuscular Hgb Conc 33.5 g/dL (32.0-36.0); Mean Corpuscular Volume 84.8 fL (80.0-100.0); Mean Platelet Volume 10.3 fL (9.4-12.4); Platelet Count 220 K/uL (130-400); RDW Coefficient of Variation 13.7 % (11.5-14.5); RDW Standard Deviation 42.2 fL (36.4-46.3); Red Blood Count 4.08 M/uL (4.20-5.40); White Blood Count 10.91 K/ul (4.8-10.8)
[2023-03-05] MEDS: LACTATED RINGER'S 1,000 ML IV PRN ×2 (12:52→15:48)
--- NOTE | 2023-03-05 13:45 | History & Physical Report ---
Date of Service March 05, 2023 Assessment & Plan (1) Encounter for supervision of normal in multigravida: (2) Maternal iron deficiency anemia affecting , antepartum: (3) Mitral regurgitation: Plan Will admit to L&D for further management. Patient comfortable. VSS. Fetus category 1 GBS negative Labor augmentation with Pit as needed Epidural prn Patient in agreement. Admission and Anticipated Discharge Date Admission Date: March 05, 2023 History of Present Illness Chief Complaint: CONTRACTIONS Primary Care Provider: Maribeth Wright MD Susana is a 27 y/o female currently at [facility]UP 39 1/7 WGA with an MARRY 03/10/23 as determined by Ultrasound who is here due to contractions. She has been having contractions since 3am this morning that were occurring every 10 minutes. She decided to go to the hospital due to the regularity of these contractions, and once she got here, she refers her contractions increased in frequency to every 5 minutes and she felt they were stronger compared to when they started earlier today. (+) movements (+) contractions (-) fluid loss (+) bloody show External FHT and external uterine monitors used * Category 1 tracing * Moderate FHT variability. Had regular appointments since 1st trimester. OB Labs: Blood Type O Positive 08/05/22 Antibody Screen NEGATIVE 08/05/22 Hemoglobin 10.7 g/dl (12.0-16.0) L 12/16/22 Hematocrit 32.8 % (37.0-47.0) L 12/16/22 Mean Corpuscular Volume 81.4 fL (80.0-100.0) 08/05/22 Platelet Count 287 K/uL (130-400) 08/05/22 Rubella IgG Antibody Immune (Immune) 08/05/22 Rapid Plasma Reagin Nonreactive (Nonreactive) 08/05/22 Hepatitis B Surface Antigen Neg (Neg) 12/03/20 Hepatitis B Surface Antigen. NON-REACTIVE (NON-REACTIVE) 08/05/22 Hepatitis C Antibody (EIA) NON-REACTIVE (NON-REACTIVE) 08/05/22 HIV (1&2) Ab and P24 Ag, 4th Gener Neg (Neg) 12/03/20 HIV (1&2) Ag and Ab Confirmation NON-REACTIVE (NON-REACTIVE) 08/05/22 Glucose 1 Hour 50 gm Load 121 mg/dl (70-130) 12/16/22 OB Optional Labs: Chlamydia trachomatis RNA Not Detected (NotDetected) 08/05/22 Neisseria gonorrhoeae RNA Not Detected (NotDetected) 08/05/22 Thyroid Stimulating Hormone (TSH) 0.539 uIu/ml (0.300-4.500) 08/23/20 Labs Reviewed: Declines cf/sma/cfdna Declines quad screen Allergies Allergy/AdvReac Type Severity Reaction Status Date / Time iron Allergy Severe ANAPHYLAXIS Verified 03/02/23 09:21 gluten AdvReac Gastrointestinal Verified 03/02/23 09:21 Upset Home Medications Medication Instructions Recorded Confirmed Type ferrous sulfate 325 mg (65 mg 325 mg PO BID #60 tabs 11/03/18 03/02/23 Rx iron) tablet prenat.vits,son,[id number]-[id number] 1 tab PO DAILY 07/06/21 03/02/23 History Patient History Medical History Anemia Branchial cleft cyst Contraception management Elevated hemoglobin A1c Encounter for annual routine gynecological examination Hematuria, gross History of Henoch-Schonlein purpura Hx of oral aphthous ulcers Hyperglycemia Mitral regurgitation Mitral regurgitation of mother during Nephrolithiasis, uric acid Neurocardiogenic syncope Varicella vaccination Surgical History History of surgery Hx of esophagogastroduodenoscopy S/P arthroscopy of knee S/P cholecystectomy S/P colonoscopy S/P wisdom tooth extraction Family History Mother Asthma Hypertension Breast cancer Mitral regurgitation Nephrolithiasis Ovarian cyst Diabetes Heart disease Aunt Asthma Lung cancer Grandfather Heart disease Hypertension Grandmother Hypertension Social History Smoking Status: Never smoker Second Hand Exposure: No; Do You Dip or Chew Tobacco: No; Tobacco Cessation Education Requested by Patient: No Hx Alcohol Use: No Hx Substance Use: No Preferred Language: Swedish Communication Ability: Effective Visual Impairment: No Limitations Hearing Ability: Normal Network Control Operators Supervisor Required: No Beliefs That Will Affect Care: None marital status: marital status details: Keon Dottie (25) [phone] Current Living Situation: Spouse Current Living Situation Comment: - Violeta Murrell-daughter current occupational status: employed current occupation: Registrar [employer] Other Information That Helps Us Care for You: No Feels Safe at Home: Yes Safety Concerns: Feels Safe At This Time Assistive Devices: None OB History 1 previous pregnancies * (07/06/21) F born through at 39 wga and weighed 7 lb 8.3 oz [employer] History Menarche was at 12 y/o LMP: unknown * Irregular * Flow: Normal Contraception use: No History of STDs: N Last Pap Smear: 08/21/21 (negative) Review of Systems no fever, no chills and no sweats Denies changes in vision. Denies shortness of breath or respiratory difficulty. no chest pain and no palpitations no dysuria no headache(s) Physical Exam Physical Exam: General: Alert, oriented x3. Afebrile. No acute distress. Eyes: Pupils equal and reactive to light bilaterally. Extraocular movement intact bilaterally. Cardiac: Regular rate and rhythm, no murmurs/rubs/gallops. Respiratory: Clear to auscultation bilaterally a/p, no wheezes/rales/rhonchi. No increased work of breathing. Symmetrical chest rise. No respiratory distress. Abdomen: Gravid; FHR baseline 150-155; Position: Cephalic Pelvic: 3 / 80 / -[address] Yepez Lower Extremities: No lower extremity edema or swelling. No deep calf pain. Jg's negative bilaterally Results & Data Vital Signs (Past 12 Hours) Vital Signs Temp Pulse Resp BP 03/05/23 12:20 80 123/75 03/05/23 12:15 36.6 C 80 16 123/75 Supervising Physician Co-Signing Physician Notes Resident Physician Supervision Note: I was present with Dr. Villegas during the history and exam. I discussed the case with the resident and agree with the findings and plan as documented in the note. Any exceptions or clarifications are listed here: 27yo @ 39 06/03, labor. Admit to L&D. OK for epidural when she desires. Documented By: Nicky Yepez, Resident Activity Tracking Resident Involvement: Resident Care Provided Care Provided: OB Delivery
[2023-03-05] MEDS ORDERED: fentaNYL citrate PF 100 MCG/2 ML VIAL ONE (15:30)
[2023-03-05] MEDS ORDERED: fentANYL 2 MCG/ML BUPIVacaine 0.125%-NSS 100ML BAG ONE (15:31)
[2023-03-05] MEDS ORDERED: SODIUM CHLORIDE 0.9% PF INJ 10 ML VIAL ONE (15:31)
[2023-03-05] MEDS ORDERED: LIDOCAINE 2%/EPINEPHRINE 1:200,000 20 ML PF ONE (15:31)
[2023-03-05] MEDS ORDERED: ePHEDrine sulfate 50 MG/ML AMP ONE (15:31)
[2023-03-05] MEDS ORDERED: BUPIVACAINE 0.25% PF 30 ML VIAL ONE (15:31)
--- NOTE | 2023-03-05 17:13 | Anesthesiology Consultation ---
Date of Service March 05, 2023 Assessment & Plan Chart Review Chart Review: Acceptable Risk for Surgery and Patient NOT seen in Pre Admission Testing Consults Requested none ASA ASA2 Proposed Anesthesia Anesthesia Type: Labor Epidural History Height/Weight Height: 5 ft 6 in Weight: 79.379 kg Allergies Allergy/AdvReac Type Severity Reaction Status Date / Time iron Allergy Severe ANAPHYLAXIS Verified 03/02/23 09:21 gluten AdvReac Gastrointestinal Verified 03/02/23 09:21 Upset Medications Home Medications Medication Instructions Recorded Confirmed Last Taken ferrous sulfate 325 mg (65 mg 325 mg PO BID #60 tabs 11/03/18 03/02/23 07/05/21 20:00 iron) tablet prenat.vits,son,raa-[id number]-tnnuf 1 tab PO DAILY 07/06/21 03/02/23 07/05/21 20:00 Active Medications Generic Name Dose Route Start Last Admin Trade Name Freq PRN Reason Stop Dose Admin Lactated Ringer's 1,000 mls @ 125 mls/hr 03/05/23 12:30 03/05/23 16:56 Lr IV 03/07/23 12:29 125 mls/hr .Q8H PRN Infusion L&D Protocol Protocol Past Medical History Medical History Anemia Branchial cleft cyst Contraception management Elevated hemoglobin A1c Encounter for annual routine gynecological examination Hematuria, gross History of Henoch-Schonlein purpura Hx of oral aphthous ulcers Hyperglycemia Mitral regurgitation Mitral regurgitation of mother during Nephrolithiasis, uric acid Neurocardiogenic syncope Varicella vaccination Past Family History Family History Mother Asthma Hypertension Breast cancer Mitral regurgitation Nephrolithiasis Ovarian cyst Diabetes Heart disease Aunt Asthma Lung cancer Grandfather Heart disease Hypertension Grandmother Hypertension Past Surgical History Surgical History History of surgery Hx of esophagogastroduodenoscopy S/P arthroscopy of knee S/P cholecystectomy S/P colonoscopy S/P wisdom tooth extraction Social History Smoking Status: Never smoker Do You Dip or Chew Tobacco: No Hx Alcohol Use: No Hx Substance Use: No substance use type: does not use Physical Exam Vital Signs Last Vital Signs Temp 36.7 C 03/05/23 15:05 Pulse 75 03/05/23 17:07 Resp 16 03/05/23 15:05 BP 115/64 03/05/23 17:03 Pulse Ox 99 03/05/23 17:07 Testing Laboratory Results 03/05/23 12:39
[2023-03-05] MEDS ORDERED: ONDANSETRON INJ 2 MG/ML 2 ML VIAL IV PRN (17:14)
[2023-03-05] MEDS ORDERED: BUPIVACAINE 0.25% PF 30 ML VIAL EPI STA (17:14)
[2023-03-05] MEDS ORDERED: LIDOCAINE 2%/EPINEPHRINE 1:200,000 20 ML PF EPI STA (17:14)
[2023-03-05] MEDS ORDERED: fentANYL 2 MCG/ML BUPIVacaine 0.125%-NSS 100ML BAG EPI PRN (17:14)
[2023-03-05] MEDS ORDERED: NALBUPHINE HCL 5 MG in SYRINGE 0 ML IV PRN (17:14)
[2023-03-05] MEDS ORDERED: fentaNYL citrate PF 100 MCG/2 ML VIAL EPI PRN (17:14)
[2023-03-05] MEDS ORDERED: BUPIVACAINE 0.25% PF 30 ML VIAL EPI PRN (17:14)
[2023-03-05] MEDS ORDERED: NALOXONE HCL 0.4 MG/1 ML VIAL/CARP IV PRN (17:14)
[2023-03-05] MEDS ORDERED: ePHEDrine sulfate 50 MG/ML AMP IV PRN (17:14)
[2023-03-05] MEDS ORDERED: ROPIVACAINE 0.5% PF 5 MG/ML 20 ML VIAL EPI PRN (17:14)
[2023-03-05] MEDS ORDERED: SODIUM CHLORIDE 0.9% PF INJ 10 ML VIAL EPI STA (17:14)
[2023-03-05] MEDS ORDERED: NALOXONE HCL 1 MG in SODIUM CHLORIDE 0.9% 1,000 ML IV PRN (17:14)
[2023-03-05] MEDS ORDERED: LIDOCAINE 2% MPF LOCAL 5 ML VIAL EPI PRN (17:14)
[2023-03-05] MEDS ORDERED: fentaNYL citrate PF 100 MCG/2 ML VIAL EPI STA (17:14)
[2023-03-05] MEDS ORDERED: diphenhydrAMINE 50 MG/ML VIAL IV PRN (17:14)
[2023-03-05] MEDS ORDERED: SODIUM CHLORIDE 0.9% PF INJ 10 ML VIAL EPI PRN (17:14)
--- NOTE | 2023-03-05 18:11 | Labor Progress Brief Note ---
Date of Service March 05, 2023 Subjective Comfortable with epidural. FHT Cat 1 Doyle Q 2-4 SVE 4-5/80/-1 AROM clear fluid. Continue labor Assessment & Plan Admission and Anticipated Discharge Date Admission Date: March 05, 2023 Results & Data Vital Signs (Past 12 Hours) Vital Signs Temp Pulse Resp BP Pulse Ox 03/05/23 18:07 72 100 03/05/23 18:03 81 108/64 03/05/23 18:02 75 100 03/05/23 18:00 16 03/05/23 18:00 16 03/05/23 17:57 95 H 100 03/05/23 17:52 89 100 03/05/23 17:48 96 H 108/67 03/05/23 17:47 97 H 100 03/05/23 17:42 90 100 03/05/23 17:37 77 100 03/05/23 17:33 80 115/70 03/05/23 17:32 74 100 03/05/23 17:30 16 03/05/23 17:30 16 03/05/23 17:27 75 98 03/05/23 17:22 87 100 03/05/23 17:20 36.5 C 73 118/71 03/05/23 17:17 91 H 100 03/05/23 17:12 77 100 03/05/23 17:07 75 99 03/05/23 17:03 86 115/64 03/05/23 17:02 82 99 03/05/23 17:01 80 110/57 L 03/05/23 16:59 74 108/58 L 03/05/23 16:58 16 03/05/23 16:58 16 03/05/23 16:57 91 H 107/75 99 03/05/23 16:55 90 109/77 03/05/23 16:54 16 03/05/23 16:54 16 03/05/23 16:53 90 102/76 03/05/23 16:52 88 98 03/05/23 16:51 83 16 108/68 03/05/23 16:50 73 117/70 03/05/23 16:48 82 105/67 03/05/23 16:47 78 98 03/05/23 16:42 89 100 03/05/23 16:37 87 100 03/05/23 16:34 82 116/71 03/05/23 16:32 79 98 03/05/23 16:27 83 99 03/05/23 16:22 79 99 03/05/23 16:17 86 111/70 99 03/05/23 16:12 84 99 03/05/23 16:07 80 99 03/05/23 16:05 76 119/72 03/05/23 16:02 77 99 03/05/23 15:57 85 99 03/05/23 15:52 77 100 03/05/23 15:47 82 100 03/05/23 15:05 16 03/05/23 15:05 36.7 C 16 03/05/23 14:59 68 119/78 03/05/23 12:20 80 123/75 03/05/23 12:15 36.6 C 80 16 123/75 Coding Level of Care Code None
--- NOTE | 2023-03-05 22:10 | Delivery Summary ---
Vaginal Delivery Summary Date of Service March 05, 2023 Vaginal Delivery Summary and 1st Degree LAC Vaginal Delivery Summary: Pre-delivery diagnoses: 27yo @ 39 2/, spontaneous labor Post-delivery diagnoses: same Procedure: spontaneous vaginal delivery, repair of 1st degree perineal laceration Surgeon: Nicky Yepez DO Complications: none Findings: Viable female . Apgars: 8/9. Weight pending, please see nursery records Estimated blood loss: 300ml Description of delivery: The patient progressed to complete with epidural anesthesia. She then began to push. She spontaneously vaginally delivered a viable from the cephalic presentation. The head delivered in CURT position. Nuchal cord x 2, easily reduced. The anterior shoulder delivered, followed by the posterior shoulder, followed by the body. The baby was placed on mother's abdomen and a spontaneous cry was heard. Delayed cord clamping was employed, and the cord was doubly clamped and cut. Cord blood was obtained. The placenta was delivered spontaneously intact with a 3-vessel cord. The uterus and vagina were swept of clots and debris. IV pitocin was given. The uterus became firm. The cervix, vagina, and perineum were inspected and a first degree laceration was noted and repaired with 3-0 Vicryl in standard fashion. Excellent hemostasis was observed. The mother and baby are recovering in stable and good condition in the room. Sponge, needle and instrument counts were correct x 2. Nicky Yepez DO [facility] Vaginal Delivery Charge Vaginal Delivery Codes: 87166 global code for the antepartum, delivery, and post- Delivery Type Details: and 1st Degree LAC
[2023-03-05] MEDS ORDERED: DIPHTHERIA/TETANUS/PERTUSSIS Vaccine (Tdap, Age 7+yrs) 0.5mL SYR/VL IM ONE (22:18)
[2023-03-05] MEDS ORDERED: oxyCODONE/ACETAMINOPHEN 5mg/325mg TAB PO PRN (22:18)
[2023-03-05] MEDS ORDERED: BENZOCAINE 20% SPRY 85 APPLN/85 GM CAN EXT PRN (22:18)
[2023-03-05] MEDS ORDERED: ACETAMINOPHEN 325 MG TAB PO PRN (22:18)
[2023-03-05] MEDS ORDERED: HYDROCORTISONE ACETATE 25 MG SUPP PR PRN (22:18)
[2023-03-05] MEDS ORDERED: IBUPROFEN 600 MG TAB PO ONE (22:35)
--- NOTE | 2023-03-05 22:39 | Anesthesia Procedure Note ---
Date of Service March 05, 2023 Anesthesia Post Epidural Note Vital Signs Vital Signs: Temp Pulse Resp BP Pulse Ox 36.7 C 72 16 117/82 100 03/05/23 22:02 03/05/23 22:32 03/05/23 22:17 03/05/23 22:32 03/05/23 21:57 Notes Mental Status: alert / awake / arousable Nausea / Vomiting: adequately controlled Pain: adequately controlled Airway Patency, RR, SpO2: stable & adequate BP & HR: stable & adequate Hydration State: stable & adequate Neuraxial Anesthesia: was administered and sensory block is resolving Anesthetic Complications: no major complications apparent and Pt Satisfied with anesthetic care Epidural: Removed without complications and With tip intact
[2023-03-06 06:38] LABS: Hematocrit (blood only) 35.7 % (37.0-47.0); Hemoglobin 11.8 g/dl (12.0-16.0)
--- NOTE | 2023-03-06 06:58 | Obstetrical Progress Note ---
Date of Service <Colleen Villegas MD - Last Filed: 03/06/23 08:23> March 06, 2023 Assessment & Plan <Colleen Villegas MD - Last Filed: 03/06/23 08:23> (1) Encounter for assessment: Plan Patient with the above mentioned history and findings was evaluated at bedside and found awake, alert, oriented in all spheres, afebrile, and in no acute distress. Vital signs showed no fever and blood pressures remained stable. Her blood type is O positive and most recent hemoglobin is adequate at 11.8 g/dL. She is GBS negative and rubella immune. Overall, patient is doing well clinically and meeting the desired milestones. Will continue routine pp care. All questions answered. <Nicky Yepez DO - Last Filed: 03/06/23 08:54> (1) Encounter for assessment: Subjective <Colleen Villegas MD - Last Filed: 03/06/23 08:23> Susana is a 27 y/o female who is now PPD # 1 following at 39 1/7 weeks. Reports feeling well overall this morning. Refers mild abdominal cramping & 0/10 pain well managed on analgesics. Voiding spontaneously. Has passed flatus but no bowel movements yet. Tolerating meals overnight and able to ambulate some. Some persistent lochia with some improvement this morning. . Constitutional: no fever, no chills or no sweats Denies shortness of breath or difficulty breathing Cardiovascular: no chest pain or no palpitations Breast: no breast pain Genitourinary (female): no dysuria Neurologic: no headache(s) Denies changes in vision Physical Exam <Colleen Villegas MD - Last Filed: 03/06/23 08:23> General: Alert. Oriented to person, time, and place. Afebrile. No acute distress. Eyes: pupils equal and reactive to light bilaterally, extraocular movements intact. Cardiac: Regular rate and rhythm, no murmurs/rubs/gallops. Respiratory: No increased work of breathing. Symmetrical chest rise. No respiratory distress. Abdomen: Soft, nontender, nondistended. Bowel sounds present. Uterus: Uterine fundus firm, non-tender, and palpable at umbilicus. Lower Extremities: No lower extremity edema or swelling. No deep calf pain. Jg's negative bilaterally. Psych: Euthymic affect. Mood and affect congruence. Regular speech rate and content. Results & Data <Colleen Villegas MD - Last Filed: 03/06/23 08:23> Vital Signs (Past 12 Hours) Vital Signs Temp Pulse Pulse Resp BP BP Pulse Ox 03/06/23 04:30 36.4 C L 58 L 18 104/71 98 03/06/23 00:48 36.7 C 68 18 113/72 97 03/06/23 00:32 36.7 C 18 03/06/23 00:32 64 98/66 L 03/06/23 00:17 65 88/51 L 03/06/23 00:02 18 03/06/23 00:02 65 107/69 03/05/23 23:47 66 102/61 03/05/23 23:32 16 03/05/23 23:32 70 107/62 03/05/23 23:17 65 109/75 03/05/23 23:02 16 03/05/23 23:02 66 114/70 03/05/23 22:47 16 03/05/23 22:47 75 122/79 03/05/23 22:32 16 03/05/23 22:32 72 117/82 03/05/23 22:20 76 109/60 03/05/23 22:17 16 03/05/23 22:02 36.7 C 18 03/05/23 22:02 78 100/60 03/05/23 21:57 82 100 03/05/23 21:52 76 100 03/05/23 21:47 95 H 100 03/05/23 21:44 127 H 93 03/05/23 21:42 86 100 03/05/23 21:37 95 H 100 03/05/23 21:35 90 110/66 03/05/23 21:32 80 100 03/05/23 21:27 80 99 03/05/23 21:22 92 H 100 03/05/23 21:19 86 106/57 L 03/05/23 21:17 87 100 03/05/23 21:12 78 98 03/05/23 21:07 80 99 03/05/23 21:05 77 100/52 L 03/05/23 21:02 79 99 03/05/23 21:01 18 03/05/23 21:01 36.9 C 18 03/05/23 20:57 103 H 100 03/05/23 20:52 79 99 03/05/23 20:49 81 100/56 L 03/05/23 20:47 80 99 03/05/23 20:42 79 100 03/05/23 20:37 77 100 03/05/23 20:34 74 104/60 03/05/23 20:32 76 100 03/05/23 20:27 73 100 03/05/23 20:22 99 H 100 03/05/23 20:20 89 106/58 L 03/05/23 20:17 82 100 03/05/23 20:12 69 100 03/05/23 20:07 78 100 03/05/23 20:04 74 100/56 L 03/05/23 20:02 73 100 03/05/23 19:58 16 03/05/23 19:58 16 03/05/23 19:57 74 100 03/05/23 19:52 71 98 03/05/23 19:50 74 97/55 L 03/05/23 19:47 71 100 03/05/23 19:42 68 99 03/05/23 19:37 70 100 03/05/23 19:32 80 99 03/05/23 19:27 70 98 03/05/23 19:22 63 99 03/05/23 19:19 78 96/53 L 03/05/23 19:17 69 100 03/05/23 19:12 68 100 03/05/23 19:07 73 100 03/05/23 19:05 68 102/67 03/05/23 19:02 71 99 03/05/23 19:01 36.7 C 18 03/05/23 19:00 18 03/05/23 19:00 18 03/05/23 18:57 78 100 O2 Del Method 03/06/23 04:30 Room Air 03/06/23 00:48 Room Air 03/06/23 00:32 03/06/23 00:32 03/06/23 00:17 03/06/23 00:02 03/06/23 00:02 03/05/23 23:47 03/05/23 23:32 03/05/23 23:32 03/05/23 23:17 03/05/23 23:02 03/05/23 23:02 03/05/23 22:47 03/05/23 22:47 03/05/23 22:32 03/05/23 22:32 03/05/23 22:20 03/05/23 22:17 03/05/23 22:02 03/05/23 22:02 03/05/23 21:57 03/05/23 21:52 03/05/23 21:47 03/05/23 21:44 03/05/23 21:42 03/05/23 21:37 03/05/23 21:35 03/05/23 21:32 03/05/23 21:27 03/05/23 21:22 03/05/23 21:19 03/05/23 21:17 03/05/23 21:12 03/05/23 21:07 03/05/23 21:05 03/05/23 21:02 03/05/23 21:01 03/05/23 21:01 03/05/23 20:57 03/05/23 20:52 03/05/23 20:49 03/05/23 20:47 03/05/23 20:42 03/05/23 20:37 03/05/23 20:34 03/05/23 20:32 03/05/23 20:27 03/05/23 20:22 03/05/23 20:20 03/05/23 20:17 03/05/23 20:12 03/05/23 20:07 03/05/23 20:04 03/05/23 20:02 03/05/23 19:58 03/05/23 19:58 03/05/23 19:57 03/05/23 19:52 03/05/23 19:50 03/05/23 19:47 03/05/23 19:42 03/05/23 19:37 03/05/23 19:32 03/05/23 19:27 03/05/23 19:22 03/05/23 19:19 03/05/23 19:17 03/05/23 19:12 03/05/23 19:07 03/05/23 19:05 03/05/23 19:02 03/05/23 19:01 03/05/23 19:00 03/05/23 19:00 03/05/23 18:57 Supervising Physician <Nicky Yepez DO - Last Filed: 03/06/23 08:54> Co-Signing Physician Notes Resident Physician Supervision Note: I was present with Dr. Villegas during the history and exam. I discussed the case with the resident and agree with the findings and plan as documented in the note. Any exceptions or clarifications are listed here: PPD#1 doing well, routine care. Documented By: Nicky Yepez DO Resident Activity Tracking <Colleen Villegas MD - Last Filed: 03/06/23 08:23> Resident Involvement: Resident Care Provided Care Provided: OB Delivery
[2023-03-06] MEDS: DOCUSATE SODIUM 100 MG CAP PO SCH ×2 (07:52→20:36)
[2023-03-06] MEDS: IBUPROFEN 600 MG TAB PO PRN ×4 (07:52→20:36)
[2023-03-06] MEDS: PRENATAL VITAMIN 1 TAB PO SCH (07:52)
[2023-03-06] MEDS ORDERED: bisacodyL 5 MG TABEC PO SCH (20:00)
[2023-03-07] MEDS: IBUPROFEN 600 MG TAB PO PRN ×2 (03:06→08:25)
--- NOTE | 2023-03-07 07:16 | Obstetrical Progress Note ---
Date of Service March 07, 2023 Assessment & Plan (1) Encounter for assessment: Plan stable doing well. ready for dc home, breast, ri, rh pos. instructions reviewed. f/u 6 wk pp check. Day #:: 2 Subjective Ambulation: ambulating normally Voiding: no voiding problems Diet Tolerance:: regular diet Lochia:: Small Feeding Type:: breast feeding no concerns ready to go home Constitutional: + as per Subjective / HPI Physical Exam Constitutional WD/WN, vitals as above Respiratory normal respiratory effort, lungs clear to auscultation Cardiovascular Rate/Rhythm: regular rate and regular rhythm Gastrointestinal (Abdomen) Inspection/Auscultation: abdomen normal to inspection Percussion/Palpation: abdomen soft Fundus firm 2cm down Musculoskeletal nt calves no edema Neurologic grossly normal Psychiatric A+Ox3, euthymic affect Results & Data Vital Signs (Past 12 Hours) Vital Signs Temp Pulse Resp BP Pulse Ox O2 Del Method 03/07/23 02:59 97.7 F 65 18 118/78 98 Room Air 03/06/23 20:30 97.9 F 77 16 111/70 97 Room Air
[2023-03-07] MEDS: PRENATAL VITAMIN 1 TAB PO SCH (08:25)
[2023-03-07] MEDS: DOCUSATE SODIUM 100 MG CAP PO SCH (08:25)
[2023-03-07] MEDS ORDERED: bisacodyL 10 MG SUPP PR PRN (22:18)
== END 2023-03-07 11:49 | disposition home or self-care (01) | DRG 807 ==
LOC: OPB 11:59 → 4S1 12:00 → 4E2 03-06 01:06